=== PATIENT | female | born 1935 | race Caucasian/White ===

== ENCOUNTER 2016-06-25 08:28 | Inpatient (IN) | payer OTHER ==
[~2016-06-25] VITALS: Ht 160 cm; Wt 78.2 kg
[~2016-06-25 08:28] MED LIST: DILT180C49 PO; LEVO25TA45; LEVO25TA45 PO; POTA20TA53 PO; SPIR25TA89 PO
[2016-06-25] MEDS ORDERED: SODIUM CHLORIDE 0.9% 1,000 ML IV ONE (09:02)
[2016-06-25 10:17] LABS: Basophils # (auto) 0 uL; Basophils % (auto) 0.3 % (0.0-2.0); Eosinophils # (auto) 0.5 uL; Eosinophils % (auto) 3.6 % (0.0-7.0); Hematocrit 40.1 % (36.0-46.0); Hemoglobin 13.3 g/dL (12.2-16.2); Lymphocytes % (auto) 7.5 % (10.0-50.0); Mean Corpuscular Hemoglobin 28.4 pg (28.0-32.0); Mean Corpuscular Hgb Conc. 33.1 g/dL (32.0-36.0); Mean Corpuscular Volume 85.7 fL (80.0-100.0); Mean Platelet Volume 8.3 fL (7.4-10.4); Monocytes % (auto) 7.5 % (0.0-12.0); Neutrophils # (auto) 10.4 uL; Neutrophils % (auto) 81.1 % (37.0-80.0); Platelet Count (auto) 439 10^3/uL (140-450); Red Cell Distribution Width 14.6 % (11.6-16.0); White Blood Cell 12.8 10^3/uL (4.4-10.8)
[2016-06-25 10:30] LABS: Bilirubin, Total 0.4 mg/dL (0.2-1.0); Calcium 8.4 mg/dL (8.5-10.1); Potassium 3.6 mmol/L (3.5-5.1); Total Protein 7.6 g/dL (6.4-8.2)
[2016-06-25] MEDS ORDERED: HYDROcodone-ACET 5/325MG TAB PO ONE (11:30)
[2016-06-25 11:38] LABS: B-Type Natriuretic Peptide 326.16 pg/mL (0-100)
[2016-06-25] MEDS ORDERED: ENOXAPARIN SOD 80 MG/0.8ML SYRINGE SC ONE (14:30)
[2016-06-25] MEDS ORDERED: LORazepam 0.5 MG TAB PO PRN (15:45)
[2016-06-25] MEDS ORDERED: ACETAMINOPHEN 500 MG TAB PO PRN (15:45)
[2016-06-25] MEDS ORDERED: TEMAZEPAM 15 MG CAP PO PRN (15:45)
[2016-06-25] MEDS ORDERED: DEXTROSE (50%) 50ML SYRG IV PRN (15:45)
[2016-06-25] MEDS ORDERED: MORPHINE SULF INJ 2 MG/ML SYRINGE 1ML IV PRN (15:45)
[2016-06-25] MEDS ORDERED: NITROGLYCERIN 0.4 MG SL TAB SL PRN (15:45)
[2016-06-25] MEDS ORDERED: LEVOTHYROXINE SODIUM 25 MCG TAB PO ONE (16:15)
[2016-06-25] MEDS ORDERED: POTASSIUM CHL 20 Meq TABLET PO ONE (16:15)
[2016-06-25] MEDS ORDERED: DILTIAZEM HCL 180MG ER CAP PO ONE (16:15)
[2016-06-25] MEDS ORDERED: SPIRONOLACTONE 25 MG TAB PO ONE (16:15)
[2016-06-25 16:48] VITALS: BP 155/72
[2016-06-25] MEDS ORDERED: SULF400I3 PO (17:18)
[2016-06-25] MEDS ORDERED: FLUT110A INH (17:18)
[2016-06-25] MEDS ORDERED: ALBU2SYP PO (17:18)
[2016-06-25 17:22] VITALS: BP 155/72
[2016-06-25 17:56] LABS: Partial Thromboplastin Time 30.4 sec (22.64-33.71); Prothrombin Time 12.1 sec (9.37-12.3)
[2016-06-25] MEDS ORDERED: InsuLIN REG 1unit/0.01ml Soln (100units/ml) SC SCH (18:00)
[2016-06-25] MEDS: HYDROcodone-ACET 5/325MG TAB PO PRN (18:03)
[2016-06-25 18:04] LABS: INR 1.17 (0.9-1.15)
[2016-06-25] MEDS: ACCU-CHEK COMFORT CURVE STRIP VI SCH (18:05)
[2016-06-25] MEDS ORDERED: WARFARIN SODIUM 5 MG TAB PO ONE (18:30)
[2016-06-25] MEDS: PROMETHAZINE HCL 25 MG/ML 1ML IV PRN (19:57)
[2016-06-25 22:00] VITALS: BP 153/71
[2016-06-25] MEDS ORDERED: ENOXAPARIN SOD 80 MG/0.8ML SYRINGE SC SCH (22:00)
[2016-06-25] MEDS ORDERED: SULFAMETHOX W/TRIMETH(800/160MG) DS TAB PO SCH (22:00)
[2016-06-25 23:58] LABS: Urine Bilirubin Negative (Negative); Urine Color Yellow (Yellow); Urine Glucose Normal (Normal); Urine Mucus FEW (None Seen); Urine Nitrite Negative (Negative); Urine RBC 1 /hpf (0 - 4); Urine Squamous Epithelial Cell FEW /hpf (<5); Urine Urobilinogen Normal (Negative)
[2016-06-25 23:59] LABS: Urine Blood 3+ /uL (Negative); Urine Ketone 1+ (Negative)
[2016-06-26] VITALS (28 sets, daily range): BP systolic 120–167; BP diastolic 50–92
[2016-06-26] MEDS ORDERED: PANTOPRAZOLE 40 MG TAB PO SCH
[2016-06-26] MEDS ORDERED: PANTOPRAZOLE 40 MG TAB PO PRN
[2016-06-26] MEDS: HYDROcodone-ACET 5/325MG TAB PO PRN (00:23)
[2016-06-26] MEDS: ACCU-CHEK COMFORT CURVE STRIP VI SCH ×2 (00:32→07:28)
[2016-06-26] MEDS: MORPHINE SULF INJ 2 MG/ML SYRINGE 1ML IV PRN ×2 (02:37→19:24)
[2016-06-26 05:33] LABS: Partial Thromboplastin Time 31.3 sec (22.64-33.71); Prothrombin Time 11.9 sec (9.37-12.3)
[2016-06-26 05:38] LABS: Albumin 2.9 g/dL (3.4-5.0); BUN/Creatinine Ratio 12.3; Bilirubin, Total 0.3 mg/dL (0.2-1.0); Total Protein 7.1 g/dL (6.4-8.2)
[2016-06-26 05:58] LABS: INR 1.16 (0.9-1.15)
[2016-06-26] MEDS: InsuLIN REG 1unit/0.01ml Soln (100units/ml) SC SCH ×2 (06:00)
[2016-06-26 06:06] LABS: Basophils # (auto) 0 uL; Basophils % (auto) 0.1 % (0.0-2.0); Eosinophils # (auto) 0.4 uL; Eosinophils % (auto) 2.5 % (0.0-7.0); Hematocrit 38.6 % (36.0-46.0); Hemoglobin 12.7 g/dL (12.2-16.2); Mean Corpuscular Hemoglobin 28.3 pg (28.0-32.0); Mean Corpuscular Hgb Conc. 32.9 g/dL (32.0-36.0); Mean Corpuscular Volume 86.1 fL (80.0-100.0); Mean Platelet Volume 9.2 fL (7.4-10.4); Monocytes # (auto) 1.2 uL; Monocytes % (auto) 8.7 % (0.0-12.0); Neutrophils # (auto) 11.6 uL; Neutrophils % (auto) 81.7 % (37.0-80.0); Platelet Count (auto) 407 10^3/uL (140-450); Red Cell Distribution Width 14.6 % (11.6-16.0); White Blood Cell 14.2 10^3/uL (4.4-10.8)
[2016-06-26] MEDS: LEVOTHYROXINE SODIUM 25 MCG TAB PO SCH (07:27)
[2016-06-26] MEDS ORDERED: HEPARIN DRIP/D5W 100UNITS/ML 250 ML IV SCH (09:54)
[2016-06-26] MEDS ORDERED: SPIRONOLACTONE 25 MG TAB PO SCH (10:00)
[2016-06-26] MEDS ORDERED: POTASSIUM CHL 20 Meq TABLET PO SCH ×2 (10:00)
[2016-06-26] MEDS: DILTIAZEM HCL 180MG ER CAP PO SCH (10:50)
[2016-06-26] MEDS: HEPARIN DRIP/D5W 100UNITS/ML 250 ML IV SCH (11:12)
[2016-06-26] MEDS ORDERED: IOHEXOL 350 MG/ML 100ML IJ ONE (15:04)
[2016-06-26] MEDS ORDERED: LIDOCAINE 2%HCL (LOCAL ANESTH.) INJ 20ML MDV ONE (15:04)
[2016-06-26] MEDS ORDERED: ANGIOMAX 250 MG VIAL IV ONE (15:44)
[2016-06-26] MEDS ORDERED: fentaNYL CITRATE 100 MCG/2 ML VL ONE (15:44)
[2016-06-26] MEDS ORDERED: MIDAZOLAM HCL 1MG/1ML-2 ML VIAL ONE (15:45)
[2016-06-26] MEDS ORDERED: EPTIFIBATIDE INJ (2MG/ML) 10ML VIAL IV ONE (15:45)
[2016-06-26] MEDS ORDERED: SODIUM CHL 0.9% 0 ML ONE (15:45)
[2016-06-26] MEDS ORDERED: ALTEPLASE (RECOMBINANT) 100 MG ONE (16:13)
[2016-06-26] MEDS ORDERED: WARFARIN SODIUM 5 MG TAB PO ONE (17:00)
[2016-06-26] MEDS ORDERED: ALTEPLASE (RECOMBINANT) 100 MG in STERILE WATER 100 ML IV ONE (17:30)
[2016-06-26] MEDS ORDERED: NITROGLYCERIN 0.4 MG SL TAB SL PRN (17:30)
[2016-06-26] MEDS ORDERED: NITROGLYCERIN 50MG/250ML 250 ML IV ONE (17:30)
[2016-06-26] MEDS ORDERED: NITROGLYCERIN 50MG/250ML 250 ML IV SCH (17:30)
[2016-06-26] MEDS ORDERED: MORPHINE SULF INJ 2 MG/ML SYRINGE 1ML IV PRN (17:30)
[2016-06-26 17:47] LABS: Prothrombin Time 12.3 sec (9.37-12.3)
[2016-06-26 17:52] LABS: INR 1.19 (0.9-1.15)
[2016-06-26] MEDS: PROMETHAZINE HCL 25 MG/ML 1ML IV PRN (17:52)
[2016-06-26 17:56] LABS: Partial Thromboplastin Time 88.1 sec (22.64-33.71)
[2016-06-27] VITALS (67 sets, daily range): BP systolic 91–166; BP diastolic 41–91
[2016-06-27] MEDS ORDERED: ALTEPLASE ONE (00:30)
[2016-06-27] MEDS: HEPARIN DRIP/D5W 100UNITS/ML 250 ML IV SCH (05:44)
[2016-06-27] MEDS: MORPHINE SULF INJ 2 MG/ML SYRINGE 1ML IV PRN ×4 (05:58→21:05)
[2016-06-27] MEDS: LEVOTHYROXINE SODIUM 25 MCG TAB PO SCH (07:00)
[2016-06-27] MEDS ORDERED: LIDOCAINE 2%HCL (LOCAL ANESTH.) INJ 20ML MDV ONE (07:23)
[2016-06-27] MEDS ORDERED: IOHEXOL 350 MG/ML 100ML IJ ONE (07:23)
[2016-06-27 07:40] LABS: Basophils # (auto) 0 uL; Basophils % (auto) 0.2 % (0.0-2.0); Eosinophils # (auto) 0.2 uL; Eosinophils % (auto) 1.4 % (0.0-7.0); Hematocrit 35.3 % (36.0-46.0); Hemoglobin 11.9 g/dL (12.2-16.2); Lymphocytes # (auto) 1.3 uL; Lymphocytes % (auto) 10.6 % (10.0-50.0); Mean Corpuscular Hemoglobin 28.6 pg (28.0-32.0); Mean Corpuscular Hgb Conc. 33.7 g/dL (32.0-36.0); Mean Corpuscular Volume 84.8 fL (80.0-100.0); Mean Platelet Volume 7.9 fL (7.4-10.4); Monocytes # (auto) 1.4 uL; Neutrophils % (auto) 75.8 % (37.0-80.0); Platelet Count (auto) 367 10^3/uL (140-450); Red Cell Distribution Width 14.4 % (11.6-16.0); White Blood Cell 11.9 10^3/uL (4.4-10.8)
[2016-06-27] MEDS: SODIUM CHLORIDE 0.9% 1,000 ML IV SCH ×3 (08:01→12:53)
[2016-06-27 08:10] LABS: Albumin 2.8 g/dL (3.4-5.0); BUN/Creatinine Ratio 12.8; Bilirubin, Total 0.4 mg/dL (0.2-1.0); Potassium 4.1 mmol/L (3.5-5.1); Total Protein 6.7 g/dL (6.4-8.2)
[2016-06-27] MEDS ORDERED: NITROGLYCERIN 0.2MG/HR TOPICAL PATCH TD ONE ×2 (08:47→09:00)
[2016-06-27] MEDS: DILTIAZEM HCL 180MG ER CAP PO SCH (08:55)
[2016-06-27] MEDS ORDERED: NITROGLYCERIN 0.4 MG SL TAB SL PRN (09:00)
[2016-06-27] MEDS ORDERED: MORPHINE SULF INJ 2 MG/ML SYRINGE 1ML IV PRN (09:00)
[2016-06-27] MEDS ORDERED: ONDANSETRON HCL 4 MG/2 ML VIAL ONE (09:58)
[2016-06-27] MEDS ORDERED: hydrALAZINE HCL 20 MG/ML VL IV PRN (10:15)
[2016-06-27] MEDS ORDERED: NITROGLYCERIN 2% OINT 1GM PKG TD ONE (10:19)
[2016-06-27] MEDS ORDERED: ONDANSETRON HCL 4 MG/2 ML VIAL IV ONE (10:30)
[2016-06-27] MEDS ORDERED: NITROGLYCERIN 0.4MG/HR TOPICAL PATCH TD ONE (10:30)
[2016-06-27] MEDS: NITROGLYCERIN 50MG/250ML 250 ML IV SCH ×2 (11:13→23:17)
[2016-06-27] MEDS ORDERED: EPTIFIBATIDE DRIP(0.75MG/ML) 100 ML IV ONE (11:16)
[2016-06-27] MEDS: EPTIFIBATIDE DRIP(0.75MG/ML) 100 ML IV SCH (11:24)
[2016-06-27 18:12] LABS: INR 1.32 (0.9-1.15); Prothrombin Time 13.6 sec (9.37-12.3)
[2016-06-27 18:16] LABS: Partial Thromboplastin Time 84.2 sec (22.64-33.71)
[2016-06-27] MEDS ORDERED: HEPARIN SODIUM (PORCINE) 5000 UNITS/ML 1ML VIAL IV ONE (18:20)
[2016-06-27] MEDS: ONDANSETRON HCL 4 MG/2 ML VIAL IV PRN (21:06)
[2016-06-28] VITALS (57 sets, daily range): BP systolic 95–148; BP diastolic 37–65
[2016-06-28] MEDS: MORPHINE SULF INJ 2 MG/ML SYRINGE 1ML IV PRN ×3 (03:04→10:26)
[2016-06-28] MEDS: ONDANSETRON HCL 4 MG/2 ML VIAL IV PRN ×2 (03:05→06:34)
[2016-06-28 04:19] LABS: Basophils # (auto) 0 uL; DEFINITIVE VIEW TRANSMISSION; Eosinophils # (auto) 0.1 uL; Eosinophils % (auto) 0.7 % (0.0-7.0); Hematocrit 26.1 % (36.0-46.0); Hemoglobin 8.6 g/dL (12.2-16.2); Lymphocytes % (auto) 6.1 % (10.0-50.0); Mean Corpuscular Hemoglobin 28.1 pg (28.0-32.0); Mean Corpuscular Hgb Conc. 32.9 g/dL (32.0-36.0); Mean Corpuscular Volume 85.4 fL (80.0-100.0); Mean Platelet Volume 8.5 fL (7.4-10.4); Monocytes # (auto) 1.6 uL; Monocytes % (auto) 9.9 % (0.0-12.0); Neutrophils # (auto) 13.6 uL; Neutrophils % (auto) 83.3 % (37.0-80.0); Platelet Count (auto) 352 10^3/uL (140-450); Red Cell Distribution Width 14.2 % (11.6-16.0); White Blood Cell 16.4 10^3/uL (4.4-10.8)
[2016-06-28 04:28] LABS: BUN/Creatinine Ratio 13.9; Calcium 6.9 mg/dL (8.5-10.1); Magnesium 1.8 mg/dL (1.6-2.6); Potassium 4.2 mmol/L (3.5-5.1)
[2016-06-28 04:49] LABS: INR 1.39 (0.9-1.15); Prothrombin Time 14.3 sec (9.37-12.3)
[2016-06-28 04:50] LABS: Partial Thromboplastin Time 79.8 sec (22.64-33.71)
[2016-06-28] MEDS: LEVOTHYROXINE SODIUM 25 MCG TAB PO SCH (07:00)
[2016-06-28] MEDS ORDERED: IOHEXOL 350 MG/ML 100ML IJ ONE (07:37)
[2016-06-28] MEDS: HEPARIN DRIP/D5W 100UNITS/ML 250 ML IV SCH ×3 (07:37→21:59)
[2016-06-28] MEDS ORDERED: LIDOCAINE 2%HCL (LOCAL ANESTH.) INJ 20ML MDV ONE (07:37)
[2016-06-28] MEDS: EPTIFIBATIDE DRIP(0.75MG/ML) 100 ML IV SCH ×3 (07:39→20:51)
[2016-06-28] MEDS: SODIUM CHLORIDE 0.9% 1,000 ML IV SCH (07:39)
[2016-06-28] MEDS ORDERED: MIDAZOLAM HCL 1MG/1ML-2 ML VIAL ONE (08:39)
[2016-06-28] MEDS ORDERED: SODIUM CHL 0.9% 0 ML ONE (08:40)
[2016-06-28] MEDS ORDERED: ANGIOMAX 250 MG VIAL IV ONE (08:40)
[2016-06-28] MEDS ORDERED: fentaNYL CITRATE 100 MCG/2 ML VL ONE (08:40)
[2016-06-28] MEDS ORDERED: WARFARIN SODIUM 10 MG TAB PO ONE (09:45)
[2016-06-28] MEDS: NITROGLYCERIN 0.2MG/HR TOPICAL PATCH TD SCH (10:00)
[2016-06-28] MEDS ORDERED: HEPARIN DRIP/D5W 100UNITS/ML 250 ML IV SCH (10:00)
[2016-06-28] MEDS: DILTIAZEM HCL 180MG ER CAP PO SCH (10:25)
[2016-06-28] MEDS ORDERED: FUROSEMIDE 20 MG/2 ML VIAL IV ONE (12:15)
[2016-06-28] MEDS ORDERED: LIDOCAINE 1% HCL (LOCAL ANESTH.) INJ 20ML MDV ID ONE (12:15)
[2016-06-28] MEDS ORDERED: PANTOPRAZOLE SODIUM 40 MG/10 ML VIAL IV ONE (12:45)
[2016-06-28] MEDS: HYDROmorphone HCL 2 MG/ML VL IV PRN ×2 (13:38→23:26)
[2016-06-28 16:04] LABS: INR 1.46 (0.9-1.15)
[2016-06-28 21:55] LABS: INR 1.96 (0.9-1.15); Prothrombin Time 20.2 sec (9.37-12.3)
[2016-06-28] MEDS: SODIUM CHLOR 0.9% PF (SALINE LOCK) 10ML VIAL IV SCH (21:56)
[2016-06-28 21:58] LABS: Partial Thromboplastin Time 73.2 sec (22.64-33.71)
[2016-06-29] VITALS (48 sets, daily range): BP systolic 107–149; BP diastolic 44–78
[2016-06-29 06:13] LABS: Basophils # (auto) 0 uL; Basophils % (auto) 0.3 % (0.0-2.0); DEFINITIVE VIEW TRANSMISSION; Eosinophils # (auto) 0.6 uL; Hematocrit 23.5 % (36.0-46.0); Hemoglobin 7.9 g/dL (12.2-16.2); Lymphocytes # (auto) 1.1 uL; Lymphocytes % (auto) 9.2 % (10.0-50.0); Mean Corpuscular Hemoglobin 28.8 pg (28.0-32.0); Mean Corpuscular Hgb Conc. 33.5 g/dL (32.0-36.0); Mean Corpuscular Volume 85.9 fL (80.0-100.0); Mean Platelet Volume 7.7 fL (7.4-10.4); Monocytes # (auto) 1.1 uL; Monocytes % (auto) 9.3 % (0.0-12.0); Neutrophils # (auto) 9.2 uL; Neutrophils % (auto) 76.2 % (37.0-80.0); Platelet Count (auto) 302 10^3/uL (140-450); Red Cell Distribution Width 13.9 % (11.6-16.0); White Blood Cell 12.1 10^3/uL (4.4-10.8)
[2016-06-29 06:17] LABS: BUN/Creatinine Ratio 11.4; Calcium 7.4 mg/dL (8.5-10.1); Potassium 3.8 mmol/L (3.5-5.1)
[2016-06-29 06:51] LABS: Prothrombin Time 32.9 sec (9.37-12.3)
[2016-06-29 06:52] LABS: INR 3.19 (0.9-1.15); Partial Thromboplastin Time 94.2 sec (22.64-33.71)
[2016-06-29] MEDS: LEVOTHYROXINE SODIUM 25 MCG TAB PO SCH (06:57)
[2016-06-29] MEDS: HEPARIN DRIP/D5W 100UNITS/ML 250 ML IV SCH (06:59)
[2016-06-29] MEDS: PANTOPRAZOLE SODIUM 40 MG/10 ML VIAL IV SCH (09:51)
[2016-06-29] MEDS: SODIUM CHLOR 0.9% PF (SALINE LOCK) 10ML VIAL IV SCH ×2 (09:51→21:58)
[2016-06-29] MEDS: DILTIAZEM HCL 180MG ER CAP PO SCH (09:51)
[2016-06-29] MEDS: NITROGLYCERIN 0.2MG/HR TOPICAL PATCH TD SCH (09:52)
[2016-06-29] MEDS ORDERED: SODIUM CHLORIDE 0.9% 1,000 ML IV SCH (10:00)
[2016-06-29] MEDS ORDERED: EPOETIN ALFA 4,000 UNIT/ML VL SC ONE (10:30)
[2016-06-29] MEDS: ONDANSETRON HCL 4 MG/2 ML VIAL IV PRN ×2 (14:48→22:08)
[2016-06-29] MEDS: HYDROmorphone HCL 2 MG/ML VL IV PRN ×2 (14:48→22:04)
[2016-06-30] MEDS: HYDROmorphone HCL 2 MG/ML VL IV PRN ×4 (02:49→21:04)
[2016-06-30 05:00] VITALS: BP 140/71
[2016-06-30 06:02] LABS: Basophils # (auto) 0.1 uL; Basophils % (auto) 0.6 % (0.0-2.0); Eosinophils # (auto) 0.2 uL; Eosinophils % (auto) 1.2 % (0.0-7.0); Hematocrit 32.3 % (36.0-46.0); Hemoglobin 10.6 g/dL (12.2-16.2); Lymphocytes # (auto) 0.8 uL; Lymphocytes % (auto) 5.2 % (10.0-50.0); Mean Corpuscular Hemoglobin 28.8 pg (28.0-32.0); Mean Corpuscular Hgb Conc. 32.9 g/dL (32.0-36.0); Mean Corpuscular Volume 87.6 fL (80.0-100.0); Mean Platelet Volume 7.9 fL (7.4-10.4); Monocytes # (auto) 0.9 uL; Monocytes % (auto) 6.4 % (0.0-12.0); Neutrophils # (auto) 12.7 uL; Neutrophils % (auto) 86.6 % (37.0-80.0); Platelet Count (auto) 285 10^3/uL (140-450); Red Cell Distribution Width 14.4 % (11.6-16.0); White Blood Cell 14.6 10^3/uL (4.4-10.8)
[2016-06-30 06:17] LABS: Partial Thromboplastin Time 30.2 sec (22.64-33.71)
[2016-06-30 06:20] LABS: Prothrombin Time 66.5 sec (9.37-12.3)
[2016-06-30 06:26] LABS: INR 6.46 (0.9-1.15)
[2016-06-30 06:32] LABS: BUN/Creatinine Ratio 12.3; Calcium 7.4 mg/dL (8.5-10.1); Potassium 4.1 mmol/L (3.5-5.1)
[2016-06-30] MEDS: LEVOTHYROXINE SODIUM 25 MCG TAB PO SCH (07:27)
[2016-06-30 09:00] VITALS: BP 151/75
[2016-06-30] MEDS ORDERED: FUROSEMIDE 20 MG/2 ML VIAL IV ONE (10:45)
[2016-06-30] MEDS: DILTIAZEM HCL 180MG ER CAP PO SCH (12:00)
[2016-06-30] MEDS: SODIUM CHLOR 0.9% PF (SALINE LOCK) 10ML VIAL IV SCH ×2 (12:01→22:01)
[2016-06-30] MEDS: PANTOPRAZOLE SODIUM 40 MG/10 ML VIAL IV SCH (12:01)
[2016-06-30] MEDS: LACTULOSE 20Gm/30ML SOLN PO PRN (12:29)
[2016-06-30 17:00] VITALS: BP 134/70
[2016-06-30 22:00] VITALS: BP 130/68
[2016-06-30] MEDS: GABAPENTIN 300 MG CAP PO SCH (22:01)
[2016-07-01] MEDS: HYDROmorphone HCL 2 MG/ML VL IV PRN ×4 (02:18→22:34)
[2016-07-01 05:00] VITALS: BP 124/59
[2016-07-01] MEDS: LEVOTHYROXINE SODIUM 25 MCG TAB PO SCH (06:17)
[2016-07-01 07:32] LABS: Basophils # (auto) 0 uL; Basophils % (auto) 0.2 % (0.0-2.0); Eosinophils # (auto) 0.3 uL; Eosinophils % (auto) 2.2 % (0.0-7.0); Hemoglobin 10.4 g/dL (12.2-16.2); Lymphocytes # (auto) 0.7 uL; Lymphocytes % (auto) 4.7 % (10.0-50.0); Mean Corpuscular Hemoglobin 28.9 pg (28.0-32.0); Mean Corpuscular Hgb Conc. 33.4 g/dL (32.0-36.0); Mean Corpuscular Volume 86.4 fL (80.0-100.0); Mean Platelet Volume 7.5 fL (7.4-10.4); Monocytes # (auto) 1.1 uL; Monocytes % (auto) 7.7 % (0.0-12.0); Neutrophils # (auto) 12.6 uL; Neutrophils % (auto) 85.2 % (37.0-80.0); Platelet Count (auto) 323 10^3/uL (140-450); Red Cell Distribution Width 14.6 % (11.6-16.0); White Blood Cell 14.8 10^3/uL (4.4-10.8)
[2016-07-01 09:10] VITALS: BP 114/52
[2016-07-01] MEDS: GABAPENTIN 300 MG CAP PO SCH ×2 (11:49→22:10)
[2016-07-01] MEDS: DILTIAZEM HCL 180MG ER CAP PO SCH (11:50)
[2016-07-01] MEDS: SODIUM CHLOR 0.9% PF (SALINE LOCK) 10ML VIAL IV SCH ×2 (11:50→22:14)
[2016-07-01] MEDS: PANTOPRAZOLE SODIUM 40 MG/10 ML VIAL IV SCH (11:50)
[2016-07-01 12:55] VITALS: BP 141/73
[2016-07-01] MEDS ORDERED: hydrALAZINE HCL 20 MG/ML VL IV PRN (13:30)
[2016-07-01] MEDS: ceFAZolin 1GM/50ML D5W 50 ML IV SCH ×2 (14:12→22:11)
[2016-07-01 16:14] VITALS: BP 133/61
[2016-07-01] MEDS: LACTULOSE 20Gm/30ML SOLN PO PRN (18:39)
[2016-07-01 23:49] VITALS: BP 121/69
[2016-07-02] MEDS: HYDROmorphone HCL 2 MG/ML VL IV PRN ×5 (03:54→23:20)
[2016-07-02] MEDS: ceFAZolin 1GM/50ML D5W 50 ML IV SCH ×3 (05:07→21:51)
[2016-07-02 05:46] VITALS: BP 125/72
[2016-07-02] MEDS: LEVOTHYROXINE SODIUM 25 MCG TAB PO SCH (06:15)
[2016-07-02 07:06] LABS: Basophils # (auto) 0 uL; Basophils % (auto) 0.2 % (0.0-2.0); Eosinophils # (auto) 0.4 uL; Eosinophils % (auto) 2.3 % (0.0-7.0); Hematocrit 33.1 % (36.0-46.0); Hemoglobin 10.9 g/dL (12.2-16.2); Lymphocytes # (auto) 0.7 uL; Lymphocytes % (auto) 4.3 % (10.0-50.0); Mean Corpuscular Hemoglobin 28.5 pg (28.0-32.0); Mean Corpuscular Hgb Conc. 32.9 g/dL (32.0-36.0); Mean Corpuscular Volume 86.6 fL (80.0-100.0); Mean Platelet Volume 7.5 fL (7.4-10.4); Monocytes % (auto) 6.6 % (0.0-12.0); Neutrophils # (auto) 13.7 uL; Neutrophils % (auto) 86.6 % (37.0-80.0); Platelet Count (auto) 408 10^3/uL (140-450); Red Cell Distribution Width 14.6 % (11.6-16.0); White Blood Cell 15.8 10^3/uL (4.4-10.8)
[2016-07-02 07:11] LABS: Partial Thromboplastin Time 43.6 sec (22.64-33.71)
[2016-07-02 07:17] LABS: Albumin 2.1 g/dL (3.4-5.0); BUN/Creatinine Ratio 15.3; Calcium 7.6 mg/dL (8.5-10.1); Potassium 3.8 mmol/L (3.5-5.1); Prothrombin Time 51.1 sec (9.37-12.3)
[2016-07-02 07:20] LABS: Bilirubin, Total 0.4 mg/dL (0.2-1.0); Total Protein 6.2 g/dL (6.4-8.2)
[2016-07-02 07:25] LABS: INR 4.96 (0.9-1.15)
[2016-07-02 09:00] VITALS: BP 121/87
[2016-07-02] MEDS: SODIUM CHLOR 0.9% PF (SALINE LOCK) 10ML VIAL IV SCH ×2 (09:43→21:51)
[2016-07-02] MEDS: PANTOPRAZOLE 40 MG TAB PO SCH (09:44)
[2016-07-02] MEDS: DILTIAZEM HCL 180MG ER CAP PO SCH (09:44)
[2016-07-02] MEDS: GABAPENTIN 300 MG CAP PO SCH (09:44)
[2016-07-02 13:00] VITALS: BP 144/81
[2016-07-02] MEDS ORDERED: PREGABALIN CAPSULE 75 MG CAP PO ONE (13:30)
[2016-07-02] MEDS ORDERED: TEMAZEPAM 15 MG CAP PO PRN (13:30)
[2016-07-02] MEDS ORDERED: HYDROcodone-ACET 5/325MG TAB PO PRN (13:30)
[2016-07-02 17:28] VITALS: BP 133/63
[2016-07-02] MEDS: BOOST PLUS 8 ounce PO SCH (18:10)
[2016-07-02] MEDS ORDERED: LOPERAMIDE HCL 2 MG CAP PO PRN (18:30)
[2016-07-02] MEDS: PREGABALIN CAPSULE 75 MG CAP PO SCH (20:52)
[2016-07-02 22:00] VITALS: BP 126/62
[2016-07-03] MEDS: HYDROmorphone HCL 2 MG/ML VL IV PRN ×5 (04:18→23:10)
[2016-07-03] MEDS: LEVOTHYROXINE SODIUM 25 MCG TAB PO SCH (04:53)
[2016-07-03 05:00] VITALS: BP 134/69
[2016-07-03 05:27] LABS: Basophils # (auto) 0 uL; DEFINITIVE VIEW TRANSMISSION; Eosinophils # (auto) 0.6 uL; Eosinophils % (auto) 4.5 % (0.0-7.0); Hematocrit 31.8 % (36.0-46.0); Hemoglobin 10.4 g/dL (12.2-16.2); Lymphocytes # (auto) 1.2 uL; Lymphocytes % (auto) 8.4 % (10.0-50.0); Mean Corpuscular Hemoglobin 28.3 pg (28.0-32.0); Mean Corpuscular Hgb Conc. 32.7 g/dL (32.0-36.0); Mean Corpuscular Volume 86.4 fL (80.0-100.0); Mean Platelet Volume 7.1 fL (7.4-10.4); Monocytes # (auto) 1.6 uL; Monocytes % (auto) 11.5 % (0.0-12.0); Neutrophils # (auto) 10.6 uL; Neutrophils % (auto) 75.6 % (37.0-80.0); Platelet Count (auto) 435 10^3/uL (140-450); Red Cell Distribution Width 14.8 % (11.6-16.0)
[2016-07-03] MEDS: ceFAZolin 1GM/50ML D5W 50 ML IV SCH (05:28)
[2016-07-03 05:38] LABS: Partial Thromboplastin Time 43.9 sec (22.64-33.71)
[2016-07-03 05:43] LABS: BUN/Creatinine Ratio 18.7; Calcium 7.6 mg/dL (8.5-10.1); Potassium 3.8 mmol/L (3.5-5.1)
[2016-07-03 05:45] LABS: INR 3.53 (0.9-1.15); Prothrombin Time 36.4 sec (9.37-12.3)
[2016-07-03 08:00] VITALS: BP 130/61
[2016-07-03] MEDS: BOOST PLUS 8 ounce PO SCH ×3 (08:00→18:10)
[2016-07-03] MEDS: SODIUM CHLOR 0.9% PF (SALINE LOCK) 10ML VIAL IV SCH ×2 (10:30→22:27)
[2016-07-03] MEDS: PANTOPRAZOLE 40 MG TAB PO SCH (10:32)
[2016-07-03] MEDS: PREGABALIN CAPSULE 75 MG CAP PO SCH ×2 (10:32→22:27)
[2016-07-03] MEDS: DILTIAZEM HCL 180MG ER CAP PO SCH (10:32)
[2016-07-03 13:00] VITALS: BP 144/73
[2016-07-03] MEDS ORDERED: cefTRIAXone 1GM/50ML D5W 50 ML IV ONE (13:00)
[2016-07-03] MEDS ORDERED: FUROSEMIDE 20 MG/2 ML VIAL IV ONE (13:00)
[2016-07-03 17:00] VITALS: BP 146/79
[2016-07-03] MEDS: SALINE 0.65 % NASAL SPRAY 45ML BOTTLE SCH ×2 (17:39→22:27)
[2016-07-03 22:00] VITALS: BP 130/79
[2016-07-04] MEDS: HYDROmorphone HCL 2 MG/ML VL IV PRN ×4 (04:15→20:18)
[2016-07-04 05:00] VITALS: BP 124/73
[2016-07-04] MEDS: SALINE 0.65 % NASAL SPRAY 45ML BOTTLE SCH ×4 (06:08→22:00)
[2016-07-04] MEDS: LEVOTHYROXINE SODIUM 25 MCG TAB PO SCH (06:08)
[2016-07-04] MEDS: BOOST PLUS 8 ounce PO SCH ×3 (08:00→18:00)
[2016-07-04 08:04] LABS: Basophils # (auto) 0 uL; Basophils % (auto) 0.2 % (0.0-2.0); Eosinophils # (auto) 0.2 uL; Eosinophils % (auto) 1.3 % (0.0-7.0); Hematocrit 32.9 % (36.0-46.0); Hemoglobin 11.3 g/dL (12.2-16.2); Lymphocytes # (auto) 0.8 uL; Lymphocytes % (auto) 4.6 % (10.0-50.0); Mean Corpuscular Hemoglobin 28.8 pg (28.0-32.0); Mean Corpuscular Hgb Conc. 34.3 g/dL (32.0-36.0); Mean Platelet Volume 6.8 fL (7.4-10.4); Monocytes # (auto) 1.3 uL; Monocytes % (auto) 7.4 % (0.0-12.0); Neutrophils # (auto) 14.9 uL; Neutrophils % (auto) 86.5 % (37.0-80.0); Platelet Count (auto) 472 10^3/uL (140-450); Red Cell Distribution Width 14.8 % (11.6-16.0); White Blood Cell 17.2 10^3/uL (4.4-10.8)
[2016-07-04 08:13] LABS: Partial Thromboplastin Time 25.8 sec (22.64-33.71)
[2016-07-04 08:16] LABS: INR 1.56 (0.9-1.15); Prothrombin Time 16.1 sec (9.37-12.3)
[2016-07-04 08:22] LABS: BUN/Creatinine Ratio 26.5; Calcium 7.9 mg/dL (8.5-10.1)
[2016-07-04 08:25] LABS: Bilirubin, Total 0.5 mg/dL (0.2-1.0); Total Protein 6.4 g/dL (6.4-8.2)
[2016-07-04] MEDS: PANTOPRAZOLE 40 MG TAB PO SCH (08:25)
[2016-07-04] MEDS: cefTRIAXone 1GM/50ML D5W 50 ML IV SCH (08:25)
[2016-07-04] MEDS: DILTIAZEM HCL 180MG ER CAP PO SCH (08:26)
[2016-07-04] MEDS: PREGABALIN CAPSULE 75 MG CAP PO SCH ×2 (08:26→22:22)
[2016-07-04 08:30] VITALS: BP 121/69
[2016-07-04] MEDS: SODIUM CHLOR 0.9% PF (SALINE LOCK) 10ML VIAL IV SCH ×2 (08:32→22:22)
[2016-07-04 13:00] VITALS: BP 133/72
[2016-07-04] MEDS: LORazepam 0.5 MG TAB PO PRN (14:33)
[2016-07-04 17:00] VITALS: BP 146/71
[2016-07-04] MEDS ORDERED: WARFARIN SODIUM 5 MG TAB PO ONE (17:00)
[2016-07-04 22:00] VITALS: BP 138/66
[2016-07-05] MEDS: HYDROmorphone HCL 2 MG/ML VL IV PRN ×5 (01:58→23:15)
[2016-07-05 05:00] VITALS: BP 117/72
[2016-07-05] MEDS: SALINE 0.65 % NASAL SPRAY 45ML BOTTLE SCH ×4 (06:00→22:00)
[2016-07-05] MEDS: LEVOTHYROXINE SODIUM 25 MCG TAB PO SCH (06:30)
[2016-07-05] MEDS: BOOST PLUS 8 ounce PO SCH ×3 (08:00→18:09)
[2016-07-05 08:27] VITALS: BP 131/67
[2016-07-05] MEDS: DILTIAZEM HCL 180MG ER CAP PO SCH (09:24)
[2016-07-05] MEDS: SODIUM CHLOR 0.9% PF (SALINE LOCK) 10ML VIAL IV SCH ×2 (09:24→22:32)
[2016-07-05] MEDS: PREGABALIN CAPSULE 75 MG CAP PO SCH ×2 (09:24→22:32)
[2016-07-05] MEDS: cefTRIAXone 1GM/50ML D5W 50 ML IV SCH (09:24)
[2016-07-05] MEDS: PANTOPRAZOLE 40 MG TAB PO SCH (09:24)
[2016-07-05 16:27] VITALS: BP 119/58
[2016-07-05 18:22] LABS: Basophils # (auto) 0 uL; Basophils % (auto) 0.1 % (0.0-2.0); Eosinophils # (auto) 0.5 uL; Hematocrit 31.8 % (36.0-46.0); Hemoglobin 10.6 g/dL (12.2-16.2); Lymphocytes # (auto) 0.7 uL; Lymphocytes % (auto) 4.6 % (10.0-50.0); Mean Corpuscular Hemoglobin 28.6 pg (28.0-32.0); Mean Corpuscular Hgb Conc. 33.2 g/dL (32.0-36.0); Mean Corpuscular Volume 86.2 fL (80.0-100.0); Mean Platelet Volume 6.8 fL (7.4-10.4); Monocytes # (auto) 1.3 uL; Monocytes % (auto) 8.1 % (0.0-12.0); Neutrophils # (auto) 13.5 uL; Neutrophils % (auto) 84.2 % (37.0-80.0); Platelet Count (auto) 488 10^3/uL (140-450); Red Cell Distribution Width 14.9 % (11.6-16.0)
[2016-07-05 18:37] LABS: Partial Thromboplastin Time 32.9 sec (22.64-33.71)
[2016-07-05 18:40] LABS: INR 1.87 (0.9-1.15); Prothrombin Time 19.3 sec (9.37-12.3)
[2016-07-05] MEDS: LACTULOSE 20Gm/30ML SOLN PO PRN (18:43)
[2016-07-05 18:50] LABS: Albumin 1.9 g/dL (3.4-5.0); Bilirubin, Total 0.4 mg/dL (0.2-1.0); Calcium 7.8 mg/dL (8.5-10.1); Total Protein 6.3 g/dL (6.4-8.2)
[2016-07-05] MEDS ORDERED: WARFARIN SODIUM 2.5 MG TAB PO ONE (19:00)
[2016-07-05 22:00] VITALS: BP 135/72
[2016-07-06] MEDS: HYDROmorphone HCL 2 MG/ML VL IV PRN ×4 (04:58→19:59)
[2016-07-06 05:30] VITALS: BP 136/79
[2016-07-06] MEDS: SALINE 0.65 % NASAL SPRAY 45ML BOTTLE SCH ×4 (06:00→22:00)
[2016-07-06] MEDS: LEVOTHYROXINE SODIUM 25 MCG TAB PO SCH (06:34)
[2016-07-06 06:44] LABS: Partial Thromboplastin Time 33.6 sec (22.64-33.71)
[2016-07-06 06:50] LABS: Basophils # (auto) 0 uL; Basophils % (auto) 0.2 % (0.0-2.0); DEFINITIVE VIEW TRANSMISSION; Eosinophils # (auto) 0.5 uL; Eosinophils % (auto) 2.8 % (0.0-7.0); Hematocrit 32.4 % (36.0-46.0); Hemoglobin 10.8 g/dL (12.2-16.2); Lymphocytes # (auto) 0.9 uL; Lymphocytes % (auto) 4.8 % (10.0-50.0); Mean Corpuscular Hemoglobin 28.6 pg (28.0-32.0); Mean Corpuscular Hgb Conc. 33.4 g/dL (32.0-36.0); Mean Corpuscular Volume 85.7 fL (80.0-100.0); Mean Platelet Volume 7.2 fL (7.4-10.4); Monocytes # (auto) 1.7 uL; Monocytes % (auto) 9.3 % (0.0-12.0); Neutrophils # (auto) 15.4 uL; Neutrophils % (auto) 82.9 % (37.0-80.0); Platelet Count (auto) 499 10^3/uL (140-450); Red Cell Distribution Width 15.3 % (11.6-16.0); White Blood Cell 18.6 10^3/uL (4.4-10.8)
[2016-07-06 06:51] LABS: INR 2.3 (0.9-1.15); Prothrombin Time 23.7 sec (9.37-12.3)
[2016-07-06 06:57] LABS: Potassium 4.3 mmol/L (3.5-5.1)
[2016-07-06 07:03] LABS: BUN/Creatinine Ratio 27.9; Magnesium 2.5 mg/dL (1.6-2.6)
[2016-07-06] MEDS: BOOST PLUS 8 ounce PO SCH ×3 (08:00→17:30)
[2016-07-06 08:53] VITALS: BP 127/72
[2016-07-06] MEDS: PREGABALIN CAPSULE 75 MG CAP PO SCH ×2 (09:24→22:32)
[2016-07-06] MEDS: cefTRIAXone 1GM/50ML D5W 50 ML IV SCH (09:24)
[2016-07-06] MEDS: PANTOPRAZOLE 40 MG TAB PO SCH (09:25)
[2016-07-06] MEDS: SODIUM CHLOR 0.9% PF (SALINE LOCK) 10ML VIAL IV SCH ×2 (10:20→22:32)
[2016-07-06] MEDS: DILTIAZEM HCL 180MG ER CAP PO SCH (10:20)
[2016-07-06] MEDS ORDERED: VANCOMYCIN PER PHARMACY 0 MG IV SCH (12:15)
[2016-07-06] MEDS ORDERED: CATHFLO ACTIVASE (ALTEPLASE) 2 MG VIAL IV ONE (12:15)
[2016-07-06 13:21] VITALS: BP 129/61
[2016-07-06] MEDS: VANCOMYCIN 1GM/250ML D5W 250 ML IV SCH (14:57)
[2016-07-06 16:14] VITALS: BP 144/62
[2016-07-06] MEDS ORDERED: WARFARIN SODIUM 2 MG TAB PO ONE (17:00)
[2016-07-06 21:45] VITALS: BP 145/67
[2016-07-07] MEDS: HYDROmorphone HCL 2 MG/ML VL IV PRN ×5 (03:22→21:24)
[2016-07-07 05:00] VITALS: BP 110/42
[2016-07-07] MEDS: SALINE 0.65 % NASAL SPRAY 45ML BOTTLE SCH ×4 (06:00→21:31)
[2016-07-07 06:35] LABS: Basophils # (auto) 0.1 uL; Basophils % (auto) 0.3 % (0.0-2.0); Eosinophils # (auto) 0.4 uL; Eosinophils % (auto) 2.4 % (0.0-7.0); Hematocrit 31.3 % (36.0-46.0); Hemoglobin 10.4 g/dL (12.2-16.2); Lymphocytes # (auto) 0.9 uL; Lymphocytes % (auto) 4.9 % (10.0-50.0); Mean Corpuscular Hemoglobin 28.3 pg (28.0-32.0); Mean Corpuscular Hgb Conc. 33.2 g/dL (32.0-36.0); Mean Corpuscular Volume 85.2 fL (80.0-100.0); Monocytes # (auto) 1.1 uL; Monocytes % (auto) 6.3 % (0.0-12.0); Neutrophils # (auto) 15.2 uL; Neutrophils % (auto) 86.1 % (37.0-80.0); Platelet Count (auto) 492 10^3/uL (140-450); White Blood Cell 17.7 10^3/uL (4.4-10.8)
[2016-07-07] MEDS: LEVOTHYROXINE SODIUM 25 MCG TAB PO SCH (06:43)
[2016-07-07 06:44] LABS: Potassium 4.3 mmol/L (3.5-5.1)
[2016-07-07 06:56] LABS: Partial Thromboplastin Time 37.8 sec (22.64-33.71)
[2016-07-07 06:59] LABS: Prothrombin Time 32.6 sec (9.37-12.3)
[2016-07-07 07:00] LABS: INR 3.17 (0.9-1.15)
[2016-07-07] MEDS: BOOST PLUS 8 ounce PO SCH ×3 (08:17→18:40)
[2016-07-07] MEDS: cefTRIAXone 1GM/50ML D5W 50 ML IV SCH (08:17)
[2016-07-07] MEDS: LACTULOSE 20Gm/30ML SOLN PO PRN (08:22)
[2016-07-07 09:00] VITALS: BP 147/79
[2016-07-07] MEDS: PREGABALIN CAPSULE 75 MG CAP PO SCH ×2 (10:03→21:24)
[2016-07-07] MEDS: DILTIAZEM HCL 180MG ER CAP PO SCH (10:03)
[2016-07-07] MEDS: PANTOPRAZOLE 40 MG TAB PO SCH (10:03)
[2016-07-07] MEDS: SODIUM CHLOR 0.9% PF (SALINE LOCK) 10ML VIAL IV SCH ×2 (10:04→22:00)
[2016-07-07] MEDS: VANCOMYCIN 1GM/250ML D5W 250 ML IV SCH (12:42)
[2016-07-07] MEDS ORDERED: FUROSEMIDE 40 MG/4 ML VIAL IV ONE (12:45)
[2016-07-07 13:00] VITALS: BP 115/67
[2016-07-07 17:00] VITALS: BP 113/62
[2016-07-07 22:00] VITALS: BP 132/56
[2016-07-08] MEDS: HYDROmorphone HCL 2 MG/ML VL IV PRN ×5 (03:45→21:20)
[2016-07-08 04:59] VITALS: BP 116/56
[2016-07-08] MEDS: SALINE 0.65 % NASAL SPRAY 45ML BOTTLE SCH ×5 (06:09→21:35)
[2016-07-08] MEDS: LEVOTHYROXINE SODIUM 25 MCG TAB PO SCH (06:10)
[2016-07-08 06:22] LABS: Basophils # (auto) 0 uL; Basophils % (auto) 0.1 % (0.0-2.0); Eosinophils # (auto) 0.3 uL; Eosinophils % (auto) 1.9 % (0.0-7.0); Hematocrit 29.8 % (36.0-46.0); Hemoglobin 9.9 g/dL (12.2-16.2); Lymphocytes # (auto) 0.7 uL; Lymphocytes % (auto) 3.8 % (10.0-50.0); Mean Corpuscular Hemoglobin 28.2 pg (28.0-32.0); Mean Corpuscular Hgb Conc. 33.2 g/dL (32.0-36.0); Mean Corpuscular Volume 84.9 fL (80.0-100.0); Mean Platelet Volume 7.1 fL (7.4-10.4); Monocytes # (auto) 1.4 uL; Monocytes % (auto) 8.2 % (0.0-12.0); Neutrophils # (auto) 14.9 uL; Platelet Count (auto) 486 10^3/uL (140-450); Red Cell Distribution Width 15.5 % (11.6-16.0); White Blood Cell 17.3 10^3/uL (4.4-10.8)
[2016-07-08 06:31] LABS: Partial Thromboplastin Time 42.2 sec (22.64-33.71)
[2016-07-08 06:36] LABS: INR 3.39 (0.9-1.15); Prothrombin Time 34.9 sec (9.37-12.3)
[2016-07-08] MEDS: BOOST PLUS 8 ounce PO SCH ×3 (08:13→17:12)
[2016-07-08] MEDS: SODIUM CHLOR 0.9% PF (SALINE LOCK) 10ML VIAL IV SCH ×2 (09:09→21:20)
[2016-07-08] MEDS: cefTRIAXone 1GM/50ML D5W 50 ML IV SCH (09:12)
[2016-07-08] MEDS: DILTIAZEM HCL 180MG ER CAP PO SCH (09:12)
[2016-07-08] MEDS: PANTOPRAZOLE 40 MG TAB PO SCH (09:12)
[2016-07-08] MEDS: PREGABALIN CAPSULE 75 MG CAP PO SCH ×2 (09:12→21:20)
[2016-07-08 09:19] VITALS: BP_SYST 136; BP_DIAS 58; BP_DIAS 61
[2016-07-08 11:41] VITALS: BP 144/77
[2016-07-08] MEDS ORDERED: ACETAMINOPHEN 500 MG TAB PO PRN (11:45)
[2016-07-08] MEDS ORDERED: LEVOTHYROXINE SODIUM 25 MCG TAB PO ONE (12:45)
[2016-07-08] MEDS ORDERED: DILTIAZEM HCL 180MG ER CAP PO ONE (12:45)
[2016-07-08] MEDS: VANCOMYCIN 1GM/250ML D5W 250 ML IV SCH (13:12)
[2016-07-08] MEDS: LORazepam 0.5 MG TAB PO PRN (15:30)
[2016-07-08 16:57] VITALS: BP 155/76
[2016-07-08 21:57] VITALS: BP 120/61
[2016-07-09] MEDS: HYDROmorphone HCL 2 MG/ML VL IV PRN ×5 (02:03→22:28)
[2016-07-09 05:24] VITALS: BP 121/75
[2016-07-09] MEDS: LEVOTHYROXINE SODIUM 25 MCG TAB PO SCH (06:09)
[2016-07-09] MEDS: SALINE 0.65 % NASAL SPRAY 45ML BOTTLE SCH ×4 (06:09→22:11)
[2016-07-09 06:14] LABS: Partial Thromboplastin Time 37.3 sec (22.64-33.71)
[2016-07-09 06:18] LABS: INR 2.6 (0.9-1.15); Prothrombin Time 26.8 sec (9.37-12.3)
[2016-07-09] MEDS: BOOST PLUS 8 ounce PO SCH ×3 (07:14→17:52)
[2016-07-09] MEDS ORDERED: LIDOCAINE 2%HCL (LOCAL ANESTH.) INJ 20ML MDV ONE ×2 (07:37→07:38)
[2016-07-09] MEDS ORDERED: IOHEXOL 350 MG/ML 100ML IJ ONE (07:37)
[2016-07-09 08:00] VITALS: BP 120/56
[2016-07-09] MEDS ORDERED: MIDAZOLAM HCL 1MG/1ML-2 ML VIAL ONE (08:29)
[2016-07-09] MEDS ORDERED: fentaNYL CITRATE 100 MCG/2 ML VL ONE (08:29)
[2016-07-09] MEDS ORDERED: ANGIOMAX 250 MG VIAL IV ONE (08:30)
[2016-07-09] MEDS ORDERED: SODIUM CHL 0.9% 50 ML ONE (08:30)
[2016-07-09] MEDS: SODIUM CHLOR 0.9% PF (SALINE LOCK) 10ML VIAL IV SCH ×2 (10:00→22:14)
[2016-07-09] MEDS: cefTRIAXone 1GM/50ML D5W 50 ML IV SCH (11:31)
[2016-07-09] MEDS: PREGABALIN CAPSULE 75 MG CAP PO SCH ×2 (11:39→22:10)
[2016-07-09] MEDS: DILTIAZEM HCL 180MG ER CAP PO SCH (11:39)
[2016-07-09] MEDS: PANTOPRAZOLE 40 MG TAB PO SCH (11:39)
[2016-07-09] MEDS: LACTULOSE 20Gm/30ML SOLN PO PRN ×2 (11:40→17:42)
[2016-07-09] MEDS ORDERED: ONDANSETRON HCL 4 MG/2 ML VIAL IV PRN (11:45)
[2016-07-09] MEDS ORDERED: HYDROcodone-ACET 5/325MG TAB PO PRN (11:45)
[2016-07-09] MEDS ORDERED: TEMAZEPAM 15 MG CAP PO PRN (11:45)
[2016-07-09 13:42] VITALS: BP 126/73
[2016-07-09 17:00] VITALS: BP 124/72
[2016-07-09] MEDS ORDERED: WARFARIN SODIUM 1 MG TAB PO ONE (17:00)
[2016-07-09 22:00] VITALS: BP 110/67
[2016-07-10] MEDS: HYDROmorphone HCL 2 MG/ML VL IV PRN ×3 (02:29→12:29)
[2016-07-10] MEDS: LACTULOSE 20Gm/30ML SOLN PO PRN (02:33)
[2016-07-10 05:00] VITALS: BP 129/69
[2016-07-10] MEDS: SALINE 0.65 % NASAL SPRAY 45ML BOTTLE SCH ×4 (06:37→22:49)
[2016-07-10] MEDS: LEVOTHYROXINE SODIUM 25 MCG TAB PO SCH (06:38)
[2016-07-10 07:39] LABS: BUN/Creatinine Ratio 25.7; Calcium 8.2 mg/dL (8.5-10.1); Potassium 3.7 mmol/L (3.5-5.1)
[2016-07-10 07:41] LABS: Basophils # (auto) 0 uL; Eosinophils # (auto) 0.3 uL; Hematocrit 28.7 % (36.0-46.0); Hemoglobin 9.5 g/dL (12.2-16.2); Lymphocytes # (auto) 1.1 uL; Lymphocytes % (auto) 6.5 % (10.0-50.0); Mean Corpuscular Hemoglobin 27.9 pg (28.0-32.0); Mean Corpuscular Volume 84.5 fL (80.0-100.0); Mean Platelet Volume 7.8 fL (7.4-10.4); Monocytes # (auto) 1.1 uL; Monocytes % (auto) 7.1 % (0.0-12.0); Neutrophils # (auto) 13.7 uL; Neutrophils % (auto) 84.4 % (37.0-80.0); Platelet Count (auto) 441 10^3/uL (140-450); Red Cell Distribution Width 15.7 % (11.6-16.0); White Blood Cell 16.2 10^3/uL (4.4-10.8)
[2016-07-10 07:44] LABS: Partial Thromboplastin Time 37.5 sec (22.64-33.71)
[2016-07-10 07:46] LABS: INR 2.71 (0.9-1.15); Prothrombin Time 27.9 sec (9.37-12.3)
[2016-07-10] MEDS: BOOST PLUS 8 ounce PO SCH ×3 (08:00→18:04)
[2016-07-10 09:00] VITALS: BP 119/58
[2016-07-10] MEDS: PANTOPRAZOLE 40 MG TAB PO SCH (09:53)
[2016-07-10] MEDS: cefTRIAXone 1GM/50ML D5W 50 ML IV SCH (09:53)
[2016-07-10] MEDS: PREGABALIN CAPSULE 75 MG CAP PO SCH ×2 (09:53→22:49)
[2016-07-10] MEDS: DILTIAZEM HCL 180MG ER CAP PO SCH (09:54)
[2016-07-10] MEDS: SODIUM CHLOR 0.9% PF (SALINE LOCK) 10ML VIAL IV SCH ×2 (09:54→22:50)
[2016-07-10 13:00] VITALS: BP 127/57
[2016-07-10] MEDS ORDERED: MILK OF MAGNESIA 30ML SUSP PO ONE (16:30)
[2016-07-10 17:00] VITALS: BP 130/64
[2016-07-10] MEDS ORDERED: WARFARIN SODIUM 1 MG TAB PO ONE (17:00)
[2016-07-10 22:00] VITALS: BP 127/58
[2016-07-11 05:55] VITALS: BP 133/53
[2016-07-11 06:29] LABS: Basophils # (auto) 0 uL; Basophils % (auto) 0.1 % (0.0-2.0); Eosinophils # (auto) 0.3 uL; Eosinophils % (auto) 2.3 % (0.0-7.0); Hematocrit 25.6 % (36.0-46.0); Hemoglobin 8.5 g/dL (12.2-16.2); Lymphocytes # (auto) 0.7 uL; Lymphocytes % (auto) 4.8 % (10.0-50.0); Mean Corpuscular Hemoglobin 27.7 pg (28.0-32.0); Mean Corpuscular Hgb Conc. 33.2 g/dL (32.0-36.0); Mean Corpuscular Volume 83.4 fL (80.0-100.0); Mean Platelet Volume 7.4 fL (7.4-10.4); Monocytes # (auto) 1.1 uL; Monocytes % (auto) 7.7 % (0.0-12.0); Neutrophils # (auto) 11.9 uL; Neutrophils % (auto) 85.1 % (37.0-80.0); Platelet Count (auto) 434 10^3/uL (140-450); Red Cell Distribution Width 15.3 % (11.6-16.0)
[2016-07-11 06:38] LABS: Calcium 7.5 mg/dL (8.5-10.1); Potassium 3.9 mmol/L (3.5-5.1)
[2016-07-11 06:43] LABS: Partial Thromboplastin Time 37.1 sec (22.64-33.71)
[2016-07-11 06:52] LABS: INR 2.24 (0.9-1.15); Prothrombin Time 23.1 sec (9.37-12.3)
[2016-07-11] MEDS: LEVOTHYROXINE SODIUM 25 MCG TAB PO SCH (06:57)
[2016-07-11] MEDS: SALINE 0.65 % NASAL SPRAY 45ML BOTTLE SCH ×4 (06:57→22:25)
[2016-07-11 09:00] VITALS: BP 121/44
[2016-07-11] MEDS: SODIUM CHLOR 0.9% PF (SALINE LOCK) 10ML VIAL IV SCH ×2 (09:55→22:29)
[2016-07-11] MEDS: BOOST PLUS 8 ounce PO SCH ×3 (09:56→19:11)
[2016-07-11] MEDS: PANTOPRAZOLE 40 MG TAB PO SCH (09:56)
[2016-07-11] MEDS: PREGABALIN CAPSULE 75 MG CAP PO SCH ×2 (09:56→22:23)
[2016-07-11] MEDS: DILTIAZEM HCL 180MG ER CAP PO SCH (09:56)
[2016-07-11] MEDS: cefTRIAXone 1GM/50ML D5W 50 ML IV SCH (09:56)
[2016-07-11 13:00] VITALS: BP 133/65
[2016-07-11] MEDS: LEVOFLOXACIN 500MG 100 ML IV SCH (14:48)
[2016-07-11 17:00] VITALS: BP 124/67
[2016-07-11] MEDS ORDERED: WARFARIN SODIUM 1 MG TAB PO ONE (17:00)
[2016-07-11 22:00] VITALS: BP 122/47
[2016-07-12 05:34] VITALS: BP 128/60
[2016-07-12] MEDS: LEVOTHYROXINE SODIUM 25 MCG TAB PO SCH (06:38)
[2016-07-12] MEDS: SALINE 0.65 % NASAL SPRAY 45ML BOTTLE SCH ×4 (06:38→21:49)
[2016-07-12 07:07] LABS: Basophils # (auto) 0 uL; Eosinophils # (auto) 0.3 uL; Eosinophils % (auto) 2.3 % (0.0-7.0); Hematocrit 28.1 % (36.0-46.0); Hemoglobin 9.3 g/dL (12.2-16.2); Lymphocytes # (auto) 0.5 uL; Lymphocytes % (auto) 3.5 % (10.0-50.0); Mean Corpuscular Hemoglobin 27.7 pg (28.0-32.0); Mean Corpuscular Hgb Conc. 33.2 g/dL (32.0-36.0); Mean Corpuscular Volume 83.6 fL (80.0-100.0); Mean Platelet Volume 7.5 fL (7.4-10.4); Monocytes # (auto) 0.7 uL; Monocytes % (auto) 4.9 % (0.0-12.0); Neutrophils # (auto) 13.3 uL; Neutrophils % (auto) 89.3 % (37.0-80.0); Platelet Count (auto) 504 10^3/uL (140-450); Red Cell Distribution Width 15.4 % (11.6-16.0); White Blood Cell 14.9 10^3/uL (4.4-10.8)
[2016-07-12 07:19] LABS: Partial Thromboplastin Time 33.8 sec (22.64-33.71)
[2016-07-12 07:21] LABS: INR 1.82 (0.9-1.15); Prothrombin Time 18.7 sec (9.37-12.3)
[2016-07-12] MEDS: BOOST PLUS 8 ounce PO SCH ×3 (08:14→17:57)
[2016-07-12 09:00] VITALS: BP 125/58
[2016-07-12] MEDS: PANTOPRAZOLE 40 MG TAB PO SCH (09:54)
[2016-07-12] MEDS: PREGABALIN CAPSULE 75 MG CAP PO SCH ×2 (09:54→21:48)
[2016-07-12] MEDS: SODIUM CHLOR 0.9% PF (SALINE LOCK) 10ML VIAL IV SCH ×2 (09:54→21:48)
[2016-07-12] MEDS: DILTIAZEM HCL 180MG ER CAP PO SCH (09:55)
[2016-07-12] MEDS: LEVOFLOXACIN 500MG 100 ML IV SCH (09:55)
[2016-07-12] MEDS ORDERED: HYDROmorphone HCL 2 MG/ML VL IV PRN (12:15)
[2016-07-12 13:00] VITALS: BP 135/63
[2016-07-12] MEDS: LORazepam 0.5 MG TAB PO PRN (15:33)
[2016-07-12 17:00] VITALS: BP 128/68
[2016-07-12] MEDS ORDERED: WARFARIN SODIUM 2 MG TAB PO ONE (17:00)
[2016-07-12 22:00] VITALS: BP 131/55
[2016-07-13 05:44] VITALS: BP 137/58
[2016-07-13] MEDS: LEVOTHYROXINE SODIUM 25 MCG TAB PO SCH (06:01)
[2016-07-13] MEDS: SALINE 0.65 % NASAL SPRAY 45ML BOTTLE SCH ×4 (06:01→21:46)
[2016-07-13 06:40] LABS: Partial Thromboplastin Time 36.3 sec (22.64-33.71)
[2016-07-13 06:44] LABS: INR 2.99 (0.9-1.15); Prothrombin Time 30.8 sec (9.37-12.3)
[2016-07-13] MEDS: BOOST PLUS 8 ounce PO SCH ×3 (08:00→18:00)
[2016-07-13 09:00] VITALS: BP 95/40
[2016-07-13] MEDS: PANTOPRAZOLE 40 MG TAB PO SCH (09:45)
[2016-07-13] MEDS: PREGABALIN CAPSULE 75 MG CAP PO SCH ×2 (09:46→21:45)
[2016-07-13] MEDS: DILTIAZEM HCL 180MG ER CAP PO SCH (09:46)
[2016-07-13] MEDS: LORazepam 0.5 MG TAB PO PRN ×2 (09:48→19:16)
[2016-07-13] MEDS: SODIUM CHLOR 0.9% PF (SALINE LOCK) 10ML VIAL IV SCH ×2 (09:53→21:45)
[2016-07-13] MEDS ORDERED: LEVOFLOXACIN 500 MG TAB PO SCH (10:00)
[2016-07-13 13:00] VITALS: BP 125/63
[2016-07-13 17:00] VITALS: BP 120/57
[2016-07-13 22:00] VITALS: BP 124/68
[2016-07-14 05:31] VITALS: BP 130/51
[2016-07-14 06:06] LABS: Basophils # (auto) 0 uL; Basophils % (auto) 0.2 % (0.0-2.0); Eosinophils # (auto) 0.4 uL; Eosinophils % (auto) 3.9 % (0.0-7.0); Hematocrit 25.1 % (36.0-46.0); Hemoglobin 8.5 g/dL (12.2-16.2); Lymphocytes # (auto) 0.6 uL; Lymphocytes % (auto) 5.7 % (10.0-50.0); Mean Corpuscular Hemoglobin 28.1 pg (28.0-32.0); Mean Corpuscular Hgb Conc. 33.8 g/dL (32.0-36.0); Mean Corpuscular Volume 83.1 fL (80.0-100.0); Mean Platelet Volume 7.2 fL (7.4-10.4); Monocytes # (auto) 0.8 uL; Neutrophils % (auto) 82.2 % (37.0-80.0); Platelet Count (auto) 502 10^3/uL (140-450); Red Cell Distribution Width 15.3 % (11.6-16.0); White Blood Cell 9.7 10^3/uL (4.4-10.8)
[2016-07-14 06:30] LABS: Partial Thromboplastin Time 42.3 sec (22.64-33.71)
[2016-07-14 06:31] LABS: Albumin 1.8 g/dL (3.4-5.0); Calcium 7.3 mg/dL (8.5-10.1); Potassium 3.5 mmol/L (3.5-5.1)
[2016-07-14 06:36] LABS: Bilirubin, Total 0.4 mg/dL (0.2-1.0); Total Protein 5.5 g/dL (6.4-8.2)
[2016-07-14] MEDS: SALINE 0.65 % NASAL SPRAY 45ML BOTTLE SCH ×4 (06:37→22:49)
[2016-07-14] MEDS: LEVOTHYROXINE SODIUM 25 MCG TAB PO SCH (06:37)
[2016-07-14 06:41] LABS: Prothrombin Time 45.8 sec (9.37-12.3)
[2016-07-14 06:43] LABS: INR 4.45 (0.9-1.15)
[2016-07-14] MEDS: BOOST PLUS 8 ounce PO SCH ×3 (08:00→18:00)
[2016-07-14 09:00] VITALS: BP 116/47
[2016-07-14] MEDS: DILTIAZEM HCL 180MG ER CAP PO SCH (10:30)
[2016-07-14] MEDS: LORazepam 0.5 MG TAB PO PRN ×2 (10:30→21:48)
[2016-07-14] MEDS: PANTOPRAZOLE 40 MG TAB PO SCH (10:31)
[2016-07-14] MEDS: PREGABALIN CAPSULE 75 MG CAP PO SCH ×2 (10:31→21:48)
[2016-07-14] MEDS: SODIUM CHLOR 0.9% PF (SALINE LOCK) 10ML VIAL IV SCH ×2 (10:32→21:48)
[2016-07-14] MEDS ORDERED: CILOSTAZOL 100 MG TAB PO ONE (11:30)
[2016-07-14] MEDS ORDERED: hydrALAZINE HCL 20 MG/ML VL IV PRN (11:30)
[2016-07-14 13:00] VITALS: BP 130/81
[2016-07-14 17:00] VITALS: BP 118/58
[2016-07-14] MEDS: CILOSTAZOL 100 MG TAB PO SCH (21:48)
[2016-07-14 22:00] VITALS: BP 121/56
[2016-07-15 05:00] VITALS: BP 117/44
[2016-07-15 06:28] LABS: INR 3.69 (0.9-1.15)
[2016-07-15] MEDS: LEVOTHYROXINE SODIUM 25 MCG TAB PO SCH (06:38)
[2016-07-15] MEDS: BOOST PLUS 8 ounce PO SCH ×3 (08:00→18:00)
[2016-07-15 08:15] VITALS: BP 115/54
[2016-07-15] MEDS: SALINE 0.65 % NASAL SPRAY 45ML BOTTLE SCH ×4 (09:00→21:58)
[2016-07-15] MEDS: LORazepam 0.5 MG TAB PO PRN (10:23)
[2016-07-15] MEDS: PREGABALIN CAPSULE 75 MG CAP PO SCH ×2 (10:23→21:58)
[2016-07-15] MEDS: PANTOPRAZOLE 40 MG TAB PO SCH (10:24)
[2016-07-15] MEDS: CILOSTAZOL 100 MG TAB PO SCH ×2 (10:24→21:59)
[2016-07-15] MEDS: SODIUM CHLOR 0.9% PF (SALINE LOCK) 10ML VIAL IV SCH ×2 (10:25→21:58)
[2016-07-15 14:09] VITALS: BP 116/53
[2016-07-15 17:19] VITALS: BP 108/66
[2016-07-15 22:00] VITALS: BP 116/51
[2016-07-16 05:00] VITALS: BP 117/51
[2016-07-16] MEDS: SALINE 0.65 % NASAL SPRAY 45ML BOTTLE SCH ×3 (06:38→21:47)
[2016-07-16] MEDS: LEVOTHYROXINE SODIUM 25 MCG TAB PO SCH (06:38)
[2016-07-16] MEDS: BOOST PLUS 8 ounce PO SCH ×3 (08:00→17:59)
[2016-07-16 08:06] VITALS: BP 129/50
[2016-07-16] MEDS: SODIUM CHLOR 0.9% PF (SALINE LOCK) 10ML VIAL IV SCH ×2 (08:47→21:47)
[2016-07-16] MEDS: LORazepam 0.5 MG TAB PO PRN ×2 (09:39→21:44)
[2016-07-16] MEDS: PANTOPRAZOLE 40 MG TAB PO SCH (09:39)
[2016-07-16] MEDS: PREGABALIN CAPSULE 75 MG CAP PO SCH ×2 (09:39→21:43)
[2016-07-16] MEDS: CILOSTAZOL 100 MG TAB PO SCH ×2 (09:39→21:44)
[2016-07-16] MEDS ORDERED: HYDROcodone-ACET 5/325MG TAB PO PRN (12:45)
[2016-07-16] MEDS ORDERED: TEMAZEPAM 15 MG CAP PO PRN (12:45)
[2016-07-16 17:30] VITALS: BP 148/66
[2016-07-16 22:00] VITALS: BP 112/49
[2016-07-17 05:00] VITALS: BP 115/58
[2016-07-17 05:35] LABS: Partial Thromboplastin Time 35.9 sec (22.64-33.71)
[2016-07-17 05:39] LABS: INR 2.13 (0.9-1.15); Prothrombin Time 21.9 sec (9.37-12.3)
[2016-07-17] MEDS: SALINE 0.65 % NASAL SPRAY 45ML BOTTLE SCH ×5 (06:19→22:13)
[2016-07-17] MEDS: LEVOTHYROXINE SODIUM 25 MCG TAB PO SCH (06:38)
[2016-07-17] MEDS: BOOST PLUS 8 ounce PO SCH ×3 (08:00→18:24)
[2016-07-17 09:00] VITALS: BP 117/59
[2016-07-17] MEDS: SODIUM CHLOR 0.9% PF (SALINE LOCK) 10ML VIAL IV SCH ×2 (10:07→22:13)
[2016-07-17] MEDS: CILOSTAZOL 100 MG TAB PO SCH ×2 (10:08→22:12)
[2016-07-17] MEDS: PANTOPRAZOLE 40 MG TAB PO SCH (10:08)
[2016-07-17] MEDS: LORazepam 0.5 MG TAB PO PRN ×2 (10:08→22:12)
[2016-07-17] MEDS: PREGABALIN CAPSULE 75 MG CAP PO SCH ×2 (10:08→22:12)
[2016-07-17 13:00] VITALS: BP 120/63
[2016-07-17 17:00] VITALS: BP 108/64
[2016-07-17 21:43] VITALS: BP 97/46
[2016-07-18 05:00] VITALS: BP 110/46
[2016-07-18 05:32] LABS: Basophils # (auto) 0.1 uL; Basophils % (auto) 0.9 % (0.0-2.0); DEFINITIVE VIEW TRANSMISSION; Eosinophils # (auto) 0.5 uL; Eosinophils % (auto) 4.7 % (0.0-7.0); Hemoglobin 8.2 g/dL (12.2-16.2); Lymphocytes % (auto) 10.2 % (10.0-50.0); Mean Corpuscular Hemoglobin 27.3 pg (28.0-32.0); Mean Corpuscular Hgb Conc. 32.7 g/dL (32.0-36.0); Mean Corpuscular Volume 83.4 fL (80.0-100.0); Monocytes % (auto) 9.9 % (0.0-12.0); Neutrophils # (auto) 7.4 uL; Neutrophils % (auto) 74.3 % (37.0-80.0); Red Cell Distribution Width 15.9 % (11.6-16.0); White Blood Cell 9.9 10^3/uL (4.4-10.8)
[2016-07-18 05:43] LABS: Platelet Count (auto) 506 10^3/uL (140-450)
[2016-07-18 06:00] LABS: BUN/Creatinine Ratio 17.5; Calcium 7.3 mg/dL (8.5-10.1); Potassium 3.2 mmol/L (3.5-5.1)
[2016-07-18] MEDS: SALINE 0.65 % NASAL SPRAY 45ML BOTTLE SCH ×4 (06:00→21:44)
[2016-07-18] MEDS: LEVOTHYROXINE SODIUM 25 MCG TAB PO SCH (06:41)
[2016-07-18 07:38] VITALS: BP 116/47
[2016-07-18] MEDS: BOOST PLUS 8 ounce PO SCH ×3 (08:00→18:35)
[2016-07-18 09:00] VITALS: BP 116/57
[2016-07-18] MEDS: SODIUM CHLOR 0.9% PF (SALINE LOCK) 10ML VIAL IV SCH ×2 (10:48→21:44)
[2016-07-18] MEDS: CILOSTAZOL 100 MG TAB PO SCH ×2 (10:49→21:44)
[2016-07-18] MEDS: PREGABALIN CAPSULE 75 MG CAP PO SCH ×2 (10:49→21:44)
[2016-07-18] MEDS: LORazepam 0.5 MG TAB PO PRN ×2 (10:49→21:44)
[2016-07-18] MEDS: PANTOPRAZOLE 40 MG TAB PO SCH (10:49)
[2016-07-18 13:00] VITALS: BP 117/58
[2016-07-18 17:00] VITALS: BP 111/47
[2016-07-18 22:00] VITALS: BP 130/68
[2016-07-19 05:00] VITALS: BP 110/60
[2016-07-19] MEDS: SALINE 0.65 % NASAL SPRAY 45ML BOTTLE SCH ×4 (05:58→21:49)
[2016-07-19] MEDS: LEVOTHYROXINE SODIUM 25 MCG TAB PO SCH (06:36)
[2016-07-19 09:00] VITALS: BP 122/60
[2016-07-19] MEDS: PANTOPRAZOLE 40 MG TAB PO SCH (10:14)
[2016-07-19] MEDS: CILOSTAZOL 100 MG TAB PO SCH ×2 (10:14→21:48)
[2016-07-19] MEDS: BOOST PLUS 8 ounce PO SCH ×3 (10:14→18:03)
[2016-07-19] MEDS: PREGABALIN CAPSULE 75 MG CAP PO SCH ×2 (10:14→21:49)
[2016-07-19] MEDS: LORazepam 0.5 MG TAB PO PRN ×2 (10:14→21:55)
[2016-07-19] MEDS: SODIUM CHLOR 0.9% PF (SALINE LOCK) 10ML VIAL IV SCH ×2 (10:14→21:48)
[2016-07-19 13:00] VITALS: BP 140/93
[2016-07-19 14:16] LABS: Basophils # (auto) 0 uL; DEFINITIVE VIEW TRANSMISSION; Hemoglobin 8.5 g/dL (12.2-16.2); Lymphocytes # (auto) 0.9 uL; Mean Corpuscular Hgb Conc. 32.5 g/dL (32.0-36.0); Monocytes # (auto) 0.9 uL; Monocytes % (auto) 7.7 % (0.0-12.0); Neutrophils # (auto) 9.9 uL
[2016-07-19 14:20] LABS: Eosinophils # (auto) 0.3 uL; Eosinophils % (auto) 2.1 % (0.0-7.0); Hematocrit 26.1 % (36.0-46.0); Lymphocytes % (auto) 7.8 % (10.0-50.0); Mean Corpuscular Volume 83.2 fL (80.0-100.0); Mean Platelet Volume 7.2 fL (7.4-10.4); Neutrophils % (auto) 82.4 % (37.0-80.0); Platelet Count (auto) 616 10^3/uL (140-450); Red Cell Distribution Width 16.3 % (11.6-16.0)
[2016-07-19 14:30] LABS: Partial Thromboplastin Time 28.7 sec (22.64-33.71)
[2016-07-19 14:41] LABS: INR 1.39 (0.9-1.15); Prothrombin Time 14.3 sec (9.37-12.3)
[2016-07-19 17:00] VITALS: BP 113/59
[2016-07-19] MEDS ORDERED: WARFARIN SODIUM 2.5 MG TAB PO ONE (17:00)
[2016-07-19 22:00] VITALS: BP 115/50
[2016-07-20 05:00] VITALS: BP 120/56
[2016-07-20] MEDS: LEVOTHYROXINE SODIUM 25 MCG TAB PO SCH (06:09)
[2016-07-20] MEDS: SALINE 0.65 % NASAL SPRAY 45ML BOTTLE SCH ×4 (06:09→22:00)
[2016-07-20 06:18] LABS: Basophils # (auto) 0 uL; Basophils % (auto) 0.4 % (0.0-2.0); DEFINITIVE VIEW TRANSMISSION; Eosinophils # (auto) 0.5 uL; Eosinophils % (auto) 4.8 % (0.0-7.0); Hemoglobin 8.3 g/dL (12.2-16.2); Lymphocytes # (auto) 1.1 uL; Lymphocytes % (auto) 10.7 % (10.0-50.0); Mean Corpuscular Hemoglobin 27.6 pg (28.0-32.0); Mean Corpuscular Hgb Conc. 33.3 g/dL (32.0-36.0); Mean Corpuscular Volume 82.9 fL (80.0-100.0); Mean Platelet Volume 7.4 fL (7.4-10.4); Monocytes % (auto) 9.4 % (0.0-12.0); Neutrophils # (auto) 7.7 uL; Neutrophils % (auto) 74.7 % (37.0-80.0); Platelet Count (auto) 572 10^3/uL (140-450); Red Cell Distribution Width 16.5 % (11.6-16.0); White Blood Cell 10.4 10^3/uL (4.4-10.8)
[2016-07-20 06:22] LABS: INR 1.39 (0.9-1.15); Prothrombin Time 14.3 sec (9.37-12.3)
[2016-07-20 06:24] LABS: Calcium 7.6 mg/dL (8.5-10.1); Potassium 3.2 mmol/L (3.5-5.1)
[2016-07-20] MEDS: BOOST PLUS 8 ounce PO SCH ×3 (08:05→18:01)
[2016-07-20 09:00] VITALS: BP 112/47
[2016-07-20] MEDS: SODIUM CHLOR 0.9% PF (SALINE LOCK) 10ML VIAL IV SCH ×2 (09:13→21:56)
[2016-07-20] MEDS: PANTOPRAZOLE 40 MG TAB PO SCH (09:13)
[2016-07-20] MEDS: CILOSTAZOL 100 MG TAB PO SCH ×2 (09:13→21:56)
[2016-07-20] MEDS: PREGABALIN CAPSULE 75 MG CAP PO SCH ×2 (09:13→21:56)
[2016-07-20 13:00] VITALS: BP 108/49
[2016-07-20] MEDS ORDERED: POTASSIUM CHL 20 Meq TABLET PO ONE (15:30)
[2016-07-20] MEDS ORDERED: ACETAMINOPHEN 500 MG TAB PO PRN (15:30)
[2016-07-20 17:00] VITALS: BP 116/57
[2016-07-20] MEDS ORDERED: WARFARIN SODIUM 2.5 MG TAB PO ONE (17:00)
[2016-07-20 22:00] VITALS: BP 122/54
[2016-07-20 23:32] VITALS: BP 123/55
[2016-07-21] VITALS (7 sets, daily range): BP systolic 95–136; BP diastolic 42–87
[2016-07-21] MEDS: SALINE 0.65 % NASAL SPRAY 45ML BOTTLE SCH ×3 (06:00→18:00)
[2016-07-21] MEDS: LEVOTHYROXINE SODIUM 25 MCG TAB PO SCH (06:03)
[2016-07-21 07:01] LABS: INR 2.8 (0.9-1.15); Prothrombin Time 28.8 sec (9.37-12.3)
[2016-07-21] MEDS: BOOST PLUS 8 ounce PO SCH ×3 (07:20→18:00)
[2016-07-21] MEDS: PREGABALIN CAPSULE 75 MG CAP PO SCH (11:12)
[2016-07-21] MEDS: LORazepam 0.5 MG TAB PO PRN (11:12)
[2016-07-21] MEDS: PANTOPRAZOLE 40 MG TAB PO SCH (11:13)
[2016-07-21] MEDS: CILOSTAZOL 100 MG TAB PO SCH (11:13)
[2016-07-21] MEDS ORDERED: ONDANSETRON HCL 4 MG/2 ML VIAL IV PRN (14:15)
[2016-07-22] MEDS ORDERED: LEVOTHYROXINE SODIUM 25 MCG TAB PO SCH (07:00)
== END 2016-07-21 19:52 | disposition hospice, home (50) | DRG 252 ==
LOC: ER 08:28 → TELE 08:29 → TELE-CENTR 16:37 → ICU WEST 06-26 17:09 → TELE-WESTW 06-29 14:30 → WEST WING 06-29 14:32 → TELE-WESTW 07-11 01:35 → WEST WING 07-11 04:25
PROVIDERS: ADMIT Internal Medicine; ATTEND Internal Medicine
PROC: 02H633Z Insertion of Infusion Device into Right Atrium, Percutaneous Approach (ICD-10-PCS; 2016-06-25)
PROC: 3E05317 Introduction of Other Thrombolytic into Peripheral Artery, Percutaneous Approach (ICD-10-PCS; principal; 2016-06-27)
PROC: 03773ZZ Dilation of Right Brachial Artery, Percutaneous Approach (ICD-10-PCS; 2016-06-27)
PROC: B31H1ZZ Fluoroscopy of Right Upper Extremity Arteries using Low Osmolar Contrast (ICD-10-PCS; 2016-06-27)
PROC: 02HV33Z Insertion of Infusion Device into Superior Vena Cava, Percutaneous Approach (ICD-10-PCS; 2016-06-27)
PROC: 03773ZZ Dilation of Right Brachial Artery, Percutaneous Approach (ICD-10-PCS; 2016-06-27)
PROC: 037B3ZZ Dilation of Right Radial Artery, Percutaneous Approach (ICD-10-PCS; 2016-06-27)
PROC: 037 Upper Arteries, Dilation (ICD-10-PCS; 2016-06-27)
PROC: 047K3ZZ Dilation of Right Femoral Artery, Percutaneous Approach (ICD-10-PCS; 2016-07-09)
PROC: B41G1ZZ Fluoroscopy of Left Lower Extremity Arteries using Low Osmolar Contrast (ICD-10-PCS; 2016-07-09)
PROC: B41F1ZZ Fluoroscopy of Right Lower Extremity Arteries using Low Osmolar Contrast (ICD-10-PCS; 2016-07-09)
DX: T82.856A Stenosis of peripheral vascular stent, initial encounter (principal); A41.9 Sepsis, unspecified organism; N17.0 Acute kidney failure with tubular necrosis; E43 Unspecified severe protein-calorie malnutrition; E87.1 Hypo-osmolality and hyponatremia; I74.2 Embolism and thrombosis of arteries of the upper extremities; D68.59 Other primary thrombophilia; I82.611 Acute embolism and thrombosis of superficial veins of right upper extremity; E03.9 Hypothyroidism, unspecified; I12.9 Hypertensive chronic kidney disease with stage 1 through stage 4 chronic kidney disease, or unspecified chronic kidney disease; J44.9 Chronic obstructive pulmonary disease, unspecified; Z82.49 Family history of ischemic heart disease and other diseases of the circulatory system; E66.9 Obesity, unspecified; Z68.31 Body mass index [BMI] 31.0-31.9, adult; Y92.9 Unspecified place or not applicable; N18.3 Chronic kidney disease, stage 3 (moderate); D64.9 Anemia, unspecified; S40.021A Contusion of right upper arm, initial encounter; E78.5 Hyperlipidemia, unspecified; I48.91 Unspecified atrial fibrillation; Z51.5 Encounter for palliative care; Z90.710 Acquired absence of both cervix and uterus; Z98.51 Tubal ligation status; L89.610 Pressure ulcer of right heel, unstageable; T45.515A Adverse effect of anticoagulants, initial encounter
CPT/HCPCS: 36415; 36569; 36600; 37224; 70450; 71010; 73080; 80048; 80053; 80202; 81001; 82270; 82805; 82962; 83036; 83735; 83880; 84484; 85025; 85610; 85730; 86850; 86900; 86901; 86920; 87070; 87077; 87081; 87186; 87205; 87493; 93005; 93306; 93923; 93926; 93930; 93971; 96372; 97110; 97116; 97530; 99144; C1769; C9113; J0690; J0696; J1956; J2250; J2405